=== PATIENT | female | born 1935 | race Caucasian/White ===

== ENCOUNTER 2022-12-30 05:50 | Emergency (ER) | payer BC, OTHER ==
[~2022-12-30] VITALS: Ht 152.4 cm; Wt 45.4 kg
[2022-12-30 05:59] VITALS: BP 155/93; PULSE 77; RESP 17; TEMP 97.9; O2SAT 100
--- NOTE | 2022-12-30 06:06 | NUR ---
PT TAKEN TO BED 11
--- NOTE | 2022-12-30 06:09 | NUR ---
Dr. Zelaya examining patient.
[2022-12-30] MEDS ORDERED: methocarbamoL 500 MG TAB PO STA (06:14)
[2022-12-30 06:15] VITALS: TEMP 97.9
[2022-12-30] MEDS ORDERED: ACETAMINOPHEN 325 MG TAB PO ONE (06:15)
[2022-12-30] MEDS ORDERED: LIDOCAINE 5% 1 EA PATCH TP ONE (06:15)
--- NOTE | 2022-12-30 06:20 | NUR ---
URINE TO LAB.
--- NOTE | 2022-12-30 06:20 | NUR ---
DAUGHTER AT THE BEDSIDE
[2022-12-30 06:44] LABS: APPEARANCE,URINE CLEAR (CLEAR); BILIRUBIN,URINE NEGATIVE (NEGATIVE); BLOOD, URINE NEGATIVE (NEGATIVE); COLOR,URINE YELLOW (YELLOW); LEUKOCYTE ESTERASE ,URINE NEGATIVE (NEGATIVE); NITRITE, URINE NEGATIVE (NEGATIVE); PH,URINE 7.5 (5.0-9.0); UGLUCOSE NEGATIVE (NEGATIVE)
[2022-12-30] MEDS ORDERED: LID5T TP (07:12)
[2022-12-30] MEDS ORDERED: DICL100G5 TP (07:12)
[2022-12-30 07:52] VITALS: BP 149/52; PULSE 75; RESP 14; O2SAT 97
--- NOTE | 2022-12-30 07:55 | NUR ---
Patient discharged with v/s stable. Written and verbal after care instructions given and explained. Patient alert, oriented and verbalized understanding of instructions. Ambulatory with steady gait. All questions addressed prior to discharge. ID band removed. Patient advised to follow up with PMD. Aware of rx given. Patient educated on indication of medication including possible reaction and side effects. Opportunity to ask questions provided and answered.
== END 2022-12-30 07:55 | disposition home or self-care (01) ==
LOC: MED 05:50
DX: M54.50 Low back pain, unspecified (principal); I10 Essential (primary) hypertension; E03.9 Hypothyroidism, unspecified; Z88.5 Allergy status to narcotic agent; Z79.899 Other long term (current) drug therapy
CPT/HCPCS: 81003; 99284

== ENCOUNTER 2023-03-07 23:29 | Inpatient (IN) | payer BC, OTHER ==
[~2023-03-07] VITALS: Ht 152.4 cm; Wt 44.0 kg
[~2023-03-07 23:29] MED LIST: DICL100G32 TP; LID5T TP
[2023-03-07 23:44] VITALS: BP 144/74; PULSE 90; RESP 16; TEMP 98.5; O2SAT 100
[2023-03-08] MEDS ORDERED: HYDROmorphone PFS 2 MG/ML SYR IVP ONE (02:10)
[2023-03-08 02:31] LABS: APPEARANCE,URINE CLEAR (CLEAR); BILIRUBIN,URINE NEGATIVE (NEGATIVE); BLOOD, URINE NEGATIVE (NEGATIVE); COLOR,URINE YELLOW (YELLOW); LEUKOCYTE ESTERASE ,URINE TRACE (NEGATIVE); NITRITE, URINE NEGATIVE (NEGATIVE); PH,URINE 5.5 (5.0-9.0); PROTEIN,URINE NEGATIVE (NEGATIVE); UGLUCOSE NEGATIVE (NEGATIVE); UROBILINOGEN,URINE 0.2 EU/dL (0.2 - 1)
[2023-03-08 02:32] LABS: BASOPHILS % (AUTO) 0.4 % (0.0-2.0); EOSINOPHILS % (AUTO) 0.3 % (0.0-4.0); HEMATOCRIT 30.8 % (36-48); HEMOGLOBIN 10.6 g/dL (12.0-16.0); LYMPHOCYTES # (AUTO) 0.7 K/uL (2.5-16.5); LYMPHOCYTES % (AUTO) 16.7 % (20.5-51.1); MEAN CORPUSCULAR HEMOGLOBIN 34 pg (27-31); MEAN CORPUSCULAR HGB CONC 35 g/dL (33-37); MEAN CORPUSCULAR VOLUME 99.6 fL (80-94); MONOCYTES # (AUTO) 0.4 K/uL (0.8-1.0); MONOCYTES % (AUTO) 9.7 % (1.7-9.3); NEUTROPHILS # (AUTO) 2.9 K/uL (1.8-7.7); NEUTROPHILS % (AUTO) 72.9 % (42.2-75.2); PLATELET COUNT (AUTO) 135 K/uL (140-450); RED BLOOD CELL COUNT(AUTO) 3.09 MIL/uL (4.20-5.40); RED CELL DISTRIBUTION WIDTH 13.2 % (11.6-13.7)
[2023-03-08 02:35] LABS: BACTERIA,URINE 10-30 (MOD) /HPF (None Seen); MUCUS,URINE 1+ /LPF (None Seen); RBC,URINE 0-5 /HPF (0-5); SQUAMOUS EPITHELIAL CELL,UR 0-3 (FEW) /LPF (0-3 (FEW))
[2023-03-08 02:53] LABS: ALANINE AMINOTRANSFERASE 37 U/L (12-78); ALBUMIN 2.5 g/dL (3.4-5.0); ALKALINE PHOSPHATASE 92 U/L (50-136); ANION GAP 11.9 (8-16); ASPARTATE AMINOTRANSFERASE 47 U/L (15-37); CALCIUM 7.9 mg/dL (8.5-10.1); CARBON DIOXIDE 27.2 mmol/L (21-32); CHLORIDE 106 mmol/L (98-107); CREATININE 0.7 mg/dL (0.6-1.3); GLUCOSE 90 mg/dL (74-106); LIPASE 31 U/L (73-393); POTASSIUM 3.1 mmol/L (3.5-5.1); SODIUM SERUM 142 mmol/L (136-145); TOTAL PROTEIN, SERUM 5.5 g/dL (6.4-8.2); UREA NITROGEN, BLOOD 20 mg/dL (7-18)
[2023-03-08] MEDS ORDERED: MORPHINE SULFATE 4 MG/ML SYR IVP ONE (06:50)
[2023-03-08] MEDS ORDERED: ONDANSETRON 4 MG/2 ML VIAL IVP ONE ×2 (06:50→09:15)
[2023-03-08] MEDS ORDERED: LACTATED RINGERS 1,000 ML IV STA (09:14)
[2023-03-08] MEDS ORDERED: ASPIRIN 325 MG TAB PO ONE (10:20)
[2023-03-08] MEDS ORDERED: cefTRIAXone 1,000 MG VIAL ONE (11:13)
[2023-03-08] MEDS ORDERED: ACETAMINOPHEN 325 MG TAB PO PRN (12:35)
[2023-03-08] MEDS ORDERED: DICLOFENAC SODIUM TP PRN (12:35)
[2023-03-08] MEDS ORDERED: MAG SULF 2000 MG/WATER PREMIX 50 ML IV PRN (12:35)
[2023-03-08] MEDS ORDERED: ONDANSETRON 4 MG/2 ML VIAL IVP PRN (12:35)
[2023-03-08] MEDS ORDERED: POTASSIUM CHLORIDE 10 MEQ TABER PO PRN (12:35)
[2023-03-08 13:10] LABS: BASOPHILS % (AUTO) 0.2 % (0.0-2.0); HEMATOCRIT 33.9 % (36-48); HEMOGLOBIN 11.6 g/dL (12.0-16.0); LYMPHOCYTES # (AUTO) 0.5 K/uL (2.5-16.5); MEAN CORPUSCULAR HEMOGLOBIN 34 pg (27-31); MEAN CORPUSCULAR HGB CONC 34 g/dL (33-37); MONOCYTES # (AUTO) 0.2 K/uL (0.8-1.0); MONOCYTES % (AUTO) 5.8 % (1.7-9.3); NEUTROPHILS # (AUTO) 2.8 K/uL (1.8-7.7); PLATELET COUNT (AUTO) 138 K/uL (140-450); RED BLOOD CELL COUNT(AUTO) 3.46 MIL/uL (4.20-5.40); RED CELL DISTRIBUTION WIDTH 13.3 % (11.6-13.7); WHITE BLOOD COUNT (AUTO) 3.5 K/uL (4.8-10.8)
[2023-03-08 13:26] LABS: ANION GAP 10.1 (8-16); CALCIUM 7.6 mg/dL (8.5-10.1); CARBON DIOXIDE 28.6 mmol/L (21-32); CHLORIDE 98 mmol/L (98-107); CREATININE 0.5 mg/dL (0.6-1.3); GLUCOSE 133 mg/dL (74-106); SODIUM SERUM 134 mmol/L (136-145); UREA NITROGEN, BLOOD 11 mg/dL (7-18)
[2023-03-08 13:28] LABS: POTASSIUM 2.7 mmol/L (3.5-5.1)
[2023-03-08 13:30] LABS: LACTIC ACID 0.6 mmol/L (0.4-2.0)
[2023-03-08 13:44] LABS: CHOL/HDL RATIO 1.2 (1-4.5); FREE T4 (FREE THYROXINE) 1.14 ng/dL (0.76-1.46); MAGNESIUM 1.2 mg/dL (1.8-2.4); PHOSPHORUS 2.9 mg/dL (2.5-4.9); THYROID STIMULATING HORMONE 0.8 uIU/mL (0.34-3.74)
[2023-03-08 14:01] LABS: INR 1.07 (0.8-1.2); PARTIAL THROMBOPLASTIN TIME 25.2 secs (22-35.6); PROTHROMBIN TIME 11.2 secs (10.8-13.4)
[2023-03-08] MEDS: NACL 0.9% 1,000 ML IV SCH (14:36)
[2023-03-08 16:00] VITALS: BP 130/90; PULSE 84; RESP 16; TEMP 97.8; O2SAT 97
[2023-03-08 19:00] VITALS: PULSE 78
[2023-03-08 20:00] VITALS: BP 137/74; PULSE 78; PULSE 83; RESP 18; TEMP 97.3; O2SAT 100
[2023-03-08] MEDS: DOCUSATE SODIUM 100 MG GELCAP PO SCH (20:32)
[2023-03-09 04:00] VITALS: BP 150/69; PULSE 76; RESP 18; TEMP 97; O2SAT 98
[2023-03-09 06:14] LABS: BASOPHILS % (AUTO) 0.1 % (0.0-2.0); HEMATOCRIT 35.8 % (36-48); HEMOGLOBIN 12.3 g/dL (12.0-16.0); LYMPHOCYTES # (AUTO) 0.6 K/uL (2.5-16.5); LYMPHOCYTES % (AUTO) 13.1 % (20.5-51.1); MEAN CORPUSCULAR HEMOGLOBIN 34 pg (27-31); MEAN CORPUSCULAR HGB CONC 34 g/dL (33-37); MEAN CORPUSCULAR VOLUME 99.1 fL (80-94); MONOCYTES # (AUTO) 0.3 K/uL (0.8-1.0); MONOCYTES % (AUTO) 7.1 % (1.7-9.3); NEUTROPHILS # (AUTO) 3.6 K/uL (1.8-7.7); NEUTROPHILS % (AUTO) 79.7 % (42.2-75.2); PLATELET COUNT (AUTO) 164 K/uL (140-450); RED BLOOD CELL COUNT(AUTO) 3.61 MIL/uL (4.20-5.40); RED CELL DISTRIBUTION WIDTH 13.6 % (11.6-13.7); WHITE BLOOD COUNT (AUTO) 4.6 K/uL (4.8-10.8)
[2023-03-09 06:43] LABS: ANION GAP 13.8 (8-16); CALCIUM 7.9 mg/dL (8.5-10.1); CARBON DIOXIDE 27.1 mmol/L (21-32); CHLORIDE 98 mmol/L (98-107); CREATININE 0.9 mg/dL (0.6-1.3); GLUCOSE 121 mg/dL (74-106); POTASSIUM 3.9 mmol/L (3.5-5.1); SODIUM SERUM 135 mmol/L (136-145); UREA NITROGEN, BLOOD 12 mg/dL (7-18)
[2023-03-09 08:00] VITALS: PULSE 81; RESP 18; O2SAT 100
[2023-03-09] MEDS: NACL 0.9% 1,000 ML IV SCH (08:35)
[2023-03-09] MEDS: DOCUSATE SODIUM 100 MG GELCAP PO SCH (09:00)
[2023-03-09] MEDS ORDERED: PANTOPRAZOLE 40 MG INJ VIAL IVP SCH (09:00)
[2023-03-09] MEDS ORDERED: LIDOCAINE 5% 1 EA PATCH TP SCH (09:00)
[2023-03-09 16:00] VITALS: BP 151/83; PULSE 87; RESP 18; TEMP 96.5; O2SAT 99
[2023-03-09] MEDS ORDERED: CEPH-588 PO (17:48)
[2023-03-09 17:54] VITALS: BP 151/83; PULSE 87; RESP 18; TEMP 96.5
== END 2023-03-09 19:30 | disposition home or self-care (01) | DRG 871 ==
LOC: MED 23:29 → MTU 03-08 12:35
DX: A41.9 Sepsis, unspecified organism (principal); E43 Unspecified severe protein-calorie malnutrition; N39.0 Urinary tract infection, site not specified; E87.1 Hypo-osmolality and hyponatremia; Z68.1 Body mass index [BMI] 19.9 or less, adult; I10 Essential (primary) hypertension; D64.9 Anemia, unspecified; Z88.5 Allergy status to narcotic agent; Z79.899 Other long term (current) drug therapy; Z90.49 Acquired absence of other specified parts of digestive tract
CPT/HCPCS: 36415; 71045; 80048; 80053; 81001; 82140; 82150; 83036; 83605; 83690; 83735; 83880; 84100; 84439; 84443; 84484; 85025; 85610; 85730; 87040; 87081; 87086; 93005; 96361; 96365; 96375; 96376; 99285; C9113; J0696; J1170; J1644; J2270; J2405; J3475; J7030; J7120; Q9967